=== PATIENT | female | born 1955 | race African-American/Black ===

== ENCOUNTER → 2018-11-15 | Outpatient (CLI) | payer OTHER ==
[2017-07-13 15:00] VITALS: BP 141/74
[~2018-11-15] MED LIST: CARV6.25 PO; CETI10TA22 PO; FELO10TA PO; SPIR25TA PO; TRIA1TAB3 PO
--- NOTE | 2018-11-15 17:35 | RAD ---
Three-view thoracic spine radiographs 11/15/2018 CLINICAL HISTORY: Mid back pain. AP, lateral and swimmer's lateral digital radiographs of the thoracic spine were obtained. Mild to moderate S-shaped curvature of the thoracolumbar spine is seen. Degenerative changes are seen throughout the thoracic disc spaces consisting of disc space narrowing, vertebral endplate sclerosis and minimal to mild anterior vertebral body osteophyte formation. Degenerative changes are seen involving the facet joints throughout the mid and lower thoracic disc spaces. No fracture or subluxation of the thoracic vertebrae is seen. No paravertebral soft tissue swelling is noted. IMPRESSION: Degenerative changes are seen involving the thoracic spine as discussed above. No acute osseous abnormality is seen. Electronically signed by: Cong Baez MD (11/15/2018 5:32 PM) [email or web address]
--- NOTE | 2018-11-15 17:38 | RAD ---
Three-view lumbar spine radiographs 11/15/2018 CLINICAL HISTORY: Chronic low back pain. AP and 2 lateral digital radiographs of the lumbar spine were obtained. Mild to moderate S-shaped curvature of the thoracolumbar spine is seen. Surgical clips overlie the right lower quadrant of the abdomen. Degenerative changes are seen throughout the lumbar disc spaces consisting of varying degrees of disc space narrowing, vertebral endplate sclerosis and mild to moderate anterior and posterior vertebral body osteophyte formation. Degenerative changes are seen involving the facet joints of the mid and lower lumbar disc spaces. No fracture or subluxation of the lumbar vertebrae seen. Atherosclerotic calcification of the abdominal aorta and its branches is noted. IMPRESSION: Degenerative changes are seen involving lumbar spine as outlined above. No acute osseous abnormality is seen. Electronically signed by: Cong Baez MD (11/15/2018 5:34 PM) [facility]
--- NOTE | 2018-11-15 17:38 | RAD ---
CHEST PA LATERAL Clinical indications: Cough. COMPARISON: None available. FINDINGS: bilateral central interstitial lung infiltrates and/or peribronchial thickening is seen. No peripheral lung consolidation is evident. No pleural effusion or pneumothorax is seen. Heart size is at the upper limits normal. Tortuosity of the thoracic aorta is seen. Mediastinum and pulmonary vasculature are otherwise unremarkable.The osseous structures appear intact. IMPRESSION: Moderate bilateral central interstitial lung infiltrates or bronchitis which may be acute or chronic in nature. Electronically signed by: Jaylen Monroe MD (11/15/2018 5:35 PM) [id number]
== END | disposition home or self-care (01) ==
LOC: RAD 16:18
PROVIDERS: ATTEND Family Medicine
DX: M25.78 Osteophyte, vertebrae (principal); M47.815 Spondylosis without myelopathy or radiculopathy, thoracolumbar region; I70.0 Atherosclerosis of aorta; R05 Cough; G89.29 Other chronic pain
CPT/HCPCS: 71046; 72072; 72100

== ENCOUNTER → 2019-04-18 | Outpatient (CLI) | payer OTHER ==
[2017-07-13 15:00] VITALS: BP 141/74
--- NOTE | 2019-04-18 16:59 | RAD ---
DATE: 04/18/2019. EXAM: MAMMO BROWN SCREENING BILATERAL. HISTORY: Routine mammographic screening. COMPARISON: None available. This is interpreted as a baseline study. This study was interpreted with the benefit of Computerized Aided Detection (CAD). FINDINGS: Breast Density: SCATTERED The breast parenchyma shows scattered fibroglandular densities. Breast parenchyma level B.. Regular linearly oriented calcifications laterally on the right CC view are most likely overlapped scattered calcifications on comparison with MLO projection. Magnification views are recommended to establish baseline. There is also an irregular nodule slightly laterally and superiorly on the right. More posteriorly, a reniform nodule is consistent with an intraparenchymal lymph node. There is no suspicious finding on the left. BI-RADS CATEGORY: 0 INCOMPLETE: NEEDS ADDITIONAL IMAGING EVALUATION AND/OR PRIOR MAMMOGRAMS FOR COMPARISON.. RECOMMENDED FOLLOW-UP: ADD ADDITIONAL IMAGING. 1. Magnification of calcifications superolaterally on the right. 2. Ultrasound of the right upper outer breast to assess and regular nodule anteriorly. PQRS compliance statement: Patient information was entered into a reminder system with a target due date (now) for the next mammogram. Mammography is a sensitive method for finding small breast cancers, but it does not detect them all and is not a substitute for careful clinical examination. A negative mammogram does not negate a clinically suspicious finding and should not result in delay in biopsying a clinically suspicious abnormality. "Our facility is accredited by the [employer] Mammography [employer]."
== END | disposition home or self-care (01) ==
LOC: MAMMO 11:35
PROVIDERS: ATTEND Family Medicine
DX: Z12.31 Encounter for screening mammogram for malignant neoplasm of breast (principal); Z11.3 Encounter for screening for infections with a predominantly sexual mode of transmission; R82.6 Abnormal urine levels of substances chiefly nonmedicinal as to source; N63.10 Unspecified lump in the right breast, unspecified quadrant
CPT/HCPCS: 36415; 77063; 77067; 86592; 86703; 86803; 87480; 87491; 87510; 87591; 87660; 88175

== ENCOUNTER → 2019-04-28 | Outpatient (CLI) | payer OTHER ==
[2017-07-13 15:00] VITALS: BP 141/74
--- NOTE | 2019-04-28 12:00 | RAD ---
DATE: 04/28/2019 EXAM: DIGITAL DIAGNOSTIC RT, BREAST RIGHT HISTORY: Abnormal mammogram COMPARISON: 04/18/2019 screen mammographic exam This study was interpreted with the benefit of Computerized Aided Detection (CAD). Breast Density: SCATTERED The breast parenchyma shows scattered fibroglandular densities. Breast parenchyma level B. FINDINGS: Upon spot magnification imaging of the right upper outer breast in the and MLO projections, calcifications are present. On the MLO projection, these are loosely grouped and do not have a definite linear branching pattern. Right outer breast intramammary lymph node is present. Ultrasound imaging of the right breast 9:00 region again demonstrates the intramammary lymph node which measures up to 0.7 cm in maximum diameter. In, uniform cortex and normal hilum identified. At the right breast 10:00 region 3 cm from the nipple, there is a a bilobed hypoechoic well-circumscribed structure measuring up to 0.6 cm transverse by 0.5 cm x 0.4 cm. No flow is evident within it. IMPRESSION: Indeterminate right breast mass. Calcific lesions which are likely benign. BI-RADS CATEGORY: 3 PROBABLY BENIGN FINDING(S)-SHORT INTERVAL FOLLOW-UP SUGGESTED RECOMMENDED FOLLOW-UP: 6M 6 MONTH FOLLOW-UP. Six-month follow-up mammogram and ultrasound to assess stability is recommended. Calcifications may also be assessed at 6 month follow-up mammography. PQRS compliance statement: Patient information was entered into a reminder system with a target due date for the next mammogram. Mammography is a sensitive method for finding small breast cancers, but it does not detect them all and is not a substitute for careful clinical examination. A negative mammogram does not negate a clinically suspicious finding and should not result in delay in biopsying a clinically suspicious abnormality. "Our facility is accredited by the [employer] Mammography Program."
== END | disposition home or self-care (01) ==
LOC: MAMMO 10:02
PROVIDERS: ATTEND Family Medicine
DX: R92.8 Other abnormal and inconclusive findings on diagnostic imaging of breast (principal)
CPT/HCPCS: 76641; 77065

== ENCOUNTER → 2019-11-24 | Outpatient (CLI) | payer OTHER ==
[2017-07-13 15:00] VITALS: BP 141/74
[~2019-11-24] MED LIST changes: -CETI10TA22 PO; +CETI10TA24 PO; -FELO10TA PO; +FELO10TA4 PO
[2019-11-24 10:56] LABS: BASO # 0.1 x10^3/uL (0.0-0.2); BASO % 1 % (0-3); EOS # 0.3 x10^3/uL (0.0-0.7); EOS % 4 % (0-3); HEMATOCRIT 45.3 % (36.0-47.0); HEMOGLOBIN 15.7 g/dL (12.0-15.5); LYMPH # 2.9 x10^3/uL (1.0-4.8); LYMPH % 37 % (24-48); MEAN CORPUSCULAR HEMOGLOBIN 33 pg (25-35); MEAN CORPUSCULAR HGB CONC 35 g/dL (31-37); MEAN CORPUSCULAR VOLUME 97 fL (79-100); MONO # 0.6 x10^3/uL (0.0-1.1); MONO % 7 % (0-9); NEUT % 51 % (31-73); PLATELET COUNT 250 x10^3/uL (140-400); RED CELL DISTRIBUTION WIDTH 13.6 % (11.5-14.5); WHITE BLOOD COUNT 7.8 x10^3/uL (4.0-11.0)
[2019-11-24 11:13] LABS: ALBUMIN 3.6 g/dL (3.4-5.0); ALBUMIN/GLOBULIN RATIO 0.9 (1.0-1.7); CREATININE 1.1 mg/dL (0.6-1.0); GFR 60.5; POTASSIUM 3.6 mmol/L (3.5-5.1); TOTAL BILIRUBIN 0.4 mg/dL (0.2-1.0); TOTAL PROTEIN 7.7 g/dL (6.4-8.2)
[2019-11-24 11:14] LABS: CHOLESTEROL/HDL RATIO 4.3
== END ==
LOC: LAB 10:27
PROVIDERS: ATTEND Family Medicine
DX: I10 Essential (primary) hypertension (principal); R53.83 Other fatigue
CPT/HCPCS: 36415; 80053; 80061; 84443; 85025

== ENCOUNTER → 2020-08-14 | Outpatient (CLI) | payer BC, MEDICARE ==
[2017-07-13 15:00] VITALS: BP 141/74
[~2020-08-14] MED LIST changes: -CETI10TA24 PO; +CETI10TA74 PO
--- NOTE | 2020-08-16 10:00 | RAD ---
Examination: Bilateral digital diagnostic mammogram. INDICATION: 64-year-old woman due for mammographic screening presents for delayed short-term follow-u p of probably benign findings in the right breast. COMPARISON: 04/18/2019 bilateral mammogram. TECHNIQUE: Bilateral CC and MLO views were obtained with 2-D and 3-D technique and reviewed with comp uter-aided detection. In addition, magnification views of the right breast in the CC and MLO projecti ons were obtained focusing on the upper-outer quadrant. FINDINGS: Scattered fibroglandular densities. The left mammogram is negative. Right mammogram again demonstrates a benign intramammary lymph node and punctate calcifications in th e upper-outer quadrant right breast middle third that vary in size, shape and density. They are mildl y suspicious. IMPRESSION: Suspicious calcifications in the upper outer right breast. BI-RADS Category 4 Findings suspicious for malignancy Recommend stereotactic right breast biopsy. Discussed with patient in the day of the procedure prior to her discharge from imaging suite. Results also telephoned to the ordering provider Dr. Hunt's office at 9:50 AM on August 16, 2020 where Shimon call took the report on her behalf. Electronically signed by: Kali Odonnell MD (08/16/2020 9:58 AM) [id number]
== END ==
LOC: MAMMO 10:27
PROVIDERS: ATTEND Family Medicine
DX: R92.8 Other abnormal and inconclusive findings on diagnostic imaging of breast (principal)
CPT/HCPCS: 77066; G0279; 77062

== ENCOUNTER → 2020-10-29 | Outpatient (CLI) | payer BC ==
[2017-07-13 15:00] VITALS: BP 141/74
[~2020-10-29] MED LIST changes: +LIDOCAINE 2%/EPI 1:100,000 20 ML VIAL. INJ ONE; +LIDOCAINE WITH 8.4% SOD BICARB 3 ML DISP.SYRIN. INJ ONE; +LIDOCAINE WITH 8.4% SOD BICARB 3 ML DISP.SYRIN. ONE
--- NOTE | 2020-10-29 09:36 | RAD ---
EXAM: CT CHEST WITHOUT CONTRAST (LDCT LUNG CANCER SCREENING). HISTORY: Risk factors for pulmonary malignancy. Baseline screening. TECHNIQUE: CT of the chest was performed without intravenous contrast using a low-dose lung screening protocol. Findings analysis is based on ACR Lung-RADS v1.1. *One or more of the following individual ized dose reduction techniques were utilized for this examination: 1. Automated exposure control. 2. Adjustment of the mA and/or kV according to patient size. 3. Use of iterative reconstruction technique. COMPARISON: None. FINDINGS: Nodules: Nodule #: 1. Image #: [id number]. Lobe: LLL. Location: Parenchymal. Attenuation: Solid. Mean diamet er: 6 mm. Comparison: None. Other findings: Images of the upper abdomen reveal no acute abnormality. Bone windows reveal no suspi cious lesions. There are no pathologically enlarged mediastinal or axillary lymph nodes. There is no pleural or kolby cardial effusion. The heart is not enlarged. The main pulmonary artery measures 3.4 cm. There are bilateral perihilar and upper lobe predominant groundglass opacities. There is mild interst itial line thickening. There is no cystic change. IMPRESSION/RECOMMENDATION: 1. ACR Lung-RADS category: 3S. 2. 6-month follow-up LDCT. 3. Bilateral perihilar and upper lobe predominant interstitial lung disease. Correlate for sarcoidosi s or other potential causes. 4. Enlargement of the central pulmonary arteries suggests pulmonary arterial hypertension. Electronically signed by: Mega Alejandra MD (10/29/2020 9:34 AM) [id number]
--- NOTE | 2020-10-29 10:47 | RAD ---
EXAM: Stereotactic right breast biopsy; specimen radiograph; post-biopsy clip placement; unilateral p ost-biopsy mammogram. HISTORY: 64-year-old female presents for stereotactic guided biopsy of clustered microcalcifications within the 10:00 position of the right breast demonstrated on a study performed 08/14/2020. TECHNIQUE AND FINDINGS: The procedure and its risks and benefits were discussed with the patient. Ris ks discussed included, but were not limited to, pain, infection, bleeding and need for repeat biopsy. The patient provided verbal and written consent. A timeout was performed. The patient was placed in a prone position of the stereotacic table and the right breast was placed i n craniocaudal compression. Images were obtained and the calcifications of concern were localized usi ng stereotaxis. The skin overlying this region was then sterilely prepped and infiltrated with a few cc 1% lidocaine for local anesthesia. Deeper soft tissue anesthesia was administered with epinephrine in 1% lidocaine. A small skin incision was made and the biopsy device was advanced and appropriate p ositioning was confirmed with additional images. Subsequently, multiple core biopsy samples were obtained with vacuum assistance. A plain radiograph o f the specimen was obtained, demonstrating inclusion of the calcifications of interest. Then, a post- biospy clip was advanced to the site of biopsy using the same guidance technique. A sterile bandage was placed, and the patient was transferred to the mammography suite for craniocaudal and mediolatera l oblique views. The post-biopsy mammogram was interpreted a separate workstation and demonstrates immediate post-bios py changes and a biopsy clip in expected position. The patient tolerated the procedure without diffic ulty and was discharged to home in stable condition with post-biospy care instructions. IMPRESSION: Successful stereotactic biospy of clustered microcalcifications within the 10:00 position of the right breast and post-biopsy clip placement. An addendum to this report will be submitted whe n pathology results are available. Electronically signed by: Leanna Hill MD (10/29/2020 10:44 AM) [id number]
--- NOTE | 2020-10-31 14:22 | PATHOLOGY ---
[facility] Accession Number: [id number] . 01 Material submitted: . breast - RIGHT BREAST CALCIFICATIONS. Modifiers: right . 01 Clinical history: . RIGHT BREAST CALCIFICATIONS . 02 Diagnosis: Breast tissue, right breast needle biopsies: - Fibroadenomatous change, focal, with associated calcifications. (JPM:babcock tester; 10/31/2020) MBR 10/31/2020 1306 Local . 02 Comment: Sections of the right breast needle biopsy reveal segments of predominantly fatty breast tissue. There are a few small foci of fibroadenomatous change with associated calcifications. There is no atypia or evidence of malignancy. (JPM:babcock tester; 10/31/2020) . 02 Electronically signed: . Morris Montes MD, Pathologist NPI- [id number] . 01 Gross description: . The specimen is received in formalin, labeled "[place], right breast calcifications received are multiple needle cores of bright yellow fibrofatty tissue measuring 3.4 x 3.0 x 0.6 cm in aggregate dimensions. The specimen is submitted entirely in cassettes A1 through A3. The cold ischemic time is 7 minutes. The total formalin fixation time is 33 hours and 33 minutes. (CAA; 10/30/2020) QA/QA 10/30/2020 1126 Local . 02 Pathologist provided ICD-10: N64.9 . 02 CPT . 223047 Specimen Comment: A courtesy copy of this report has been sent to [phone], [phone] Specimen Comment: [id number] Specimen Comment: Report sent to / DR SHULTZ Performed at: [address], [place], [place] [id number] MD Herberth Reyes MD Phone: [phone] Performed at: 02 [facility] [address] [place], [place] [id number] MD Morris Montes MD Phone: [phone]
== END | disposition home or self-care (01) ==
LOC: CT 08:41
PROVIDERS: ATTEND Family Medicine
DX: R92.0 Mammographic microcalcification found on diagnostic imaging of breast (principal); R92.8 Other abnormal and inconclusive findings on diagnostic imaging of breast; J84.89 Other specified interstitial pulmonary diseases; C34.90 Malignant neoplasm of unspecified part of unspecified bronchus or lung; I10 Essential (primary) hypertension; F17.210 Nicotine dependence, cigarettes, uncomplicated; Z79.899 Other long term (current) drug therapy; Z98.890 Other specified postprocedural states; Z88.0 Allergy status to penicillin; Z88.5 Allergy status to narcotic agent; Z88.2 Allergy status to sulfonamides
CPT/HCPCS: 19081; 71250; 77065; J3490